=== PATIENT | male | born 1955 | race Caucasian/White ===

== ENCOUNTER 2017-03-28 16:53 | Emergency (ER) | payer MEDICAID ==
--- NOTE | 2017-03-28 17:02 | EDM.PDOC ---
ED HPI GENERAL MEDICAL PROBLEM - General Chief Complaint: Head Injury Stated Complaint: fall, head laceration Time Seen by Provider: 03/28/17 16:59 Source of Information: Reports: Patient, Other (brought in by neighbor) - History of Present Illness INITIAL COMMENTS - FREE TEXT/NARRATIVE: Patient is a 61-year-old gentleman who admits drinking last night states about 4 beers; at 3 or 4am he went outside the house to urinate after urination he was walking up the stairs to go back home he missed a step and fell down hitting his left forehead and eye region at this time he has edema and ecchymosis of the left eye with significant blood clots in the area at this time we are cleaning him up to see the extent of damage we will do a CT of facial CT to see if there is any bone structure trauma or any blowout fractures Onset: Today Improves with: Reports: None Worsens with: Reports: None Treatments MATHEMATICIAN RESEARCH: Reports: Dressing(s) (paper towel in place upon arrival on patient's left side of head) Left Eye Pain Score (Numeric/FACES): 1 - Related Data Allergies Allergy/AdvReac Type Severity Reaction Status Date / Time Penicillins Allergy Cannot Verified 03/28/17 16:55 Remember Home Meds: Home Meds . [No Known Home Meds] 03/28/17 [History] ED ROS GENERAL - Review of Systems Review Of Systems: See Below HEENT: Reports: Eye Pain (left eye pain ), Vision Change (unable to open left eye due to swelling at this time ) Respiratory: Reports: No Symptoms Cardiovascular: Reports: No Symptoms Endocrine: Reports: No Symptoms GI/Abdominal: Reports: No Symptoms : Reports: No Symptoms Musculoskeletal: Reports: No Symptoms Skin: Reports: Bruising (left eye; swelling left eye ; laceration noted ) Neurological: Reports: No Symptoms Psychiatric: Reports: No Symptoms ED EXAM, HEAD INJURY - Physical Exam Exam: See Below Exam Limited By: No Limitations General Appearance: Alert, WD/WN, No Apparent Distress Head: Facial Ecchymosis (left side ), Facial Lacerations (left side ), Facial Swelling (left forehead and eye ), Facial Tenderness (left forehead and eye ) Ears: Normal External Exam, Normal Canal, Hearing Grossly Normal, Normal TMs Nose: Normal Inspection, Normal Mucousa, No Blood Throat/Mouth: Normal Inspection, Normal Lips, Normal Teeth, Normal Gums, Normal Oropharynx, Normal Voice, No Airway Compromise Neck: Non-Tender, Full Range of Motion, Normal Alignment, Normal Inspection Respiratory: No Respiratory Distress, Lungs Clear, Normal Breath Sounds, No Accessory Muscle Use, Chest Non-Tender GI/Abdominal Exam: Normal Bowel Sounds, Soft, Non-Tender, No Organomegaly, No Distention, No Abnormal Bruit, No Mass (Male) Exam: Deferred Rectal (Males) Exam: Deferred Back Exam: Normal Inspection Extremities: Normal Inspection, Normal Range of Motion, Non-Tender, No Pedal Edema, Normal Capillary Refill 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 2 inch long lacertaion, 1/2 inch deep on left forehead. Course - Vital Signs Last Recorded V/S: Last Vital Signs Temp Pulse 88 03/28/17 17:07 Resp 14 03/28/17 17:07 BP 128/82 03/28/17 17:07 Pulse Ox 96 03/28/17 17:07 - Orders/Labs/Meds Orders: Active Orders 24 hr Category Date Time Status Max Facial Sinus wo Cont [CT] Stat Exams 03/28/17 17:02 Taken Labs: Laboratory Tests 03/28/17 03/28/17 Range/Units 17:15 17:15 WBC 4.4 (4.0-10.2) K/uL RBC 3.80 L (4.33-5.41) M/uL Hgb 12.0 L (13.1-16.8) g/dL Hct 34.8 L (39.0-49.0) % MCV 91.6 (84.0-98.0) fL MCH 31.6 (28.2-33.3) pg MCHC 34.5 (31.7-36.0) g/dL RDW 17.3 H (11.2-14.1) % Plt Count 75 L (150-350) K/uL Neut % (Auto) 52.2 (45.0-80.0) % Lymph % (Auto) 32.7 (10.0-50.0) % Lea % (Auto) 14.0 (2.0-14.0) % Eos % (Auto) 0.2 (0.0-5.0) % Baso % (Auto) 0.9 (0.0-2.0) % Neut # (Auto) 2.28 (1.40-7.00) K/uL Lymph # (Auto) 1.43 (0.50-3.50) K/uL Lea # (Auto) 0.61 (0.00-1.00) K/uL Eos # (Auto) 0.01 (0.00-0.50) K/uL Baso # (Auto) 0.04 (0.00-0.20) K/uL Sodium 136 (136-145) mmol/L Potassium 4.0 (3.5-5.1) mmol/L Chloride 100 (98-107) mmol/L Carbon Dioxide 25.5 (21.0-32.0) mmol/L BUN 5 L (7-18) mg/dL Creatinine 0.74 (0.51-1.17) mg/dL Est Cr Clr Drug Dosing 104.25 mL/min Estimated GFR (MDRD) > 60 mL/min Glucose 120 H (74-106) mg/dL Calcium 8.0 L (8.5-10.1) mg/dL Ethyl Alcohol 0.190 H (0.000-0.080) g/dL Departure - Departure Time of Disposition: 18:45 Disposition: DC/Tfer to [facility] 02 Clinical Impression: Eye swollen, left, Laceration of forehead, left, complicated - Discharge Information Referrals: PCP,Unknown [Ordering Only Provider] - Forms: ED Department Discharge ED Communication - ED Communication Date/Time Date: 03/28/17 Time Called: 05:51 (CT Negative; Rad. Called ) - Problem List & Annotations (1) Eye swollen, left SNOMED Code(s): 85905387, 42076181 Code(s): H57.8 - OTHER SPECIFIED DISORDERS OF EYE AND ADNEXA Status: Acute Current Visit: Yes (2) Laceration of forehead, left, complicated SNOMED Code(s): 782446184, 612816250 Code(s): S01.81XA - LACERATION W/O FOREIGN BODY OF OTH PART OF HEAD, INIT ENCNTR Status: Acute Current Visit: Yes Qualifiers: Encounter type: initial encounter Qualified Code(s): S01.81XA - Laceration without foreign body of other part of head, initial encounter - Problem List Review Problem List Initiated/Reviewed/Updated: Yes - My Orders Last 24 Hours: My Active Orders 03/28/17 17:02 Max Facial Sinus wo Cont [CT] Stat - Assessment/Plan Last 24 Hours: My Active Orders 03/28/17 17:02 Max Facial Sinus wo Cont [CT] Stat Plan: Wound was cleaned and irrigated. Due to patient waiting 12-14 hours prior to coming in, I do not feel comfortable closing the wound myself related to the clots and continuous bleeding. Wound is 12-14 hours old. Stat read on CT scan was negative- no fractures. blood noted in the left eyelid. Laceration noted. Minimal blood in the sinuses. Called [facility] one call for plastic surgeon to repair wound. They did not have one hand almond blancher. Called [facility] one call - Will transfer patient to [facility] for wound irrigation and closure after speaking to Dr. Gauthier (plastic surgery hand almond blancher) at [facility]. Ambulance called for BLS transfer related to continuous bleeding of left forehead laceration and blood alcohol level.
[2017-03-28 17:08] VITALS: BP 128/82
[2017-03-28 17:32] LABS: CHLORIDE,CL 100 mmol/L (98-107); SODIUM,NA 136 mmol/L (136-145)
== END 2017-03-28 19:05 ==
LOC: LL.ED 16:53
DX: S01.81XA Laceration without foreign body of other part of head, initial encounter (principal); H57.8 Other specified disorders of eye and adnexa; Z88.0 Allergy status to penicillin; W10.9XXA Fall (on) (from) unspecified stairs and steps, initial encounter; Y92.009 Unspecified place in unspecified non-institutional (private) residence as the place of occurrence of the external cause
CPT/HCPCS: 36415; 70486; 80048; 85025; 99284; 99291; 99292; G0480